=== PATIENT | male | born 1995 | race Caucasian/White ===

== ENCOUNTER 2024-08-09 16:23 | Outpatient (CLI) | payer MEDICAID, SELFPAY ==
--- NOTE | ~2024-08-09 | XR_ITS ---
EXAMINATION: XR lumbar spine 2-3V DATE: 08/09/2024 16:51 INDICATION: Low back pain TECHNIQUE: Anteroposterior and lateral views of the lumbar spine, and cone-down lateral view of the l umbosacral junction were obtained. COMPARISON: None. FINDINGS: Alignment is normal. Vertebral body and disc heights are normal. No significant lumbar facet or sacra l iliac osteoarthritis. Soft tissues are unremarkable with normal bilateral psoas shadows. IMPRESSION: 1. Negative lumbar spine radiographs. Reviewed, dictated and finalized at location B. [employer]
[2024-08-09 17:15] LABS: Hemoglobin 13.6 g/dL (14.0-18.0); Mean Corpuscular HGB Conc 33.2 g/dl (32-36); Mean Corpuscular Hemoglobin 33.1 pg (26-34); Mean Corpuscular Volume 99.8 fl (80-100); Mean Platelet Volume 10.8 fl (7.4-10.4); Platelet Count Result 178 k/mm3 (150-375); Red Blood Count 4.11 M/mm3 (4.6-6.20)
[2024-08-09 17:33] LABS: Alanine Aminotransferase 13 U/L (6-50); Albumin Level 4.8 g/dL (3.5-5.1); Alkaline Phosphatase 55 U/L (38-126); Anion Gap 4 mmol/L (4-12); Aspartate Amino Transferase 20 U/L (17-59); Bilirubin,Total 0.6 mg/dL (0.2-1.3); Blood Urea Nitrogen 12 mg/dL (9-20); Calcium 9.7 mg/dL (8.4-10.2); Carbon Dioxide 27 mmol/L (22-30); Chloride 111 mmol/L (98-107); Estimated Glomerular Filt Rate > 60; Glucose 85 mg/dL (65-110); Potassium 4.1 mmol/L (3.4-5.0); Sodium 142 mmol/L (137-145)
[2024-08-09 17:40] LABS: Iron 102 ug/dL (49-181)
[2024-08-09 17:50] LABS: Percent Iron Saturation 34 % (20-50); TOTAL IRON BINDING CAPACITY 298 ug/dL (265-497)
[2024-08-09 17:53] LABS: Hemoglobin A1C 5.1 % (<5.7)
[2024-08-09 17:59] LABS: Free T4 Free Thyroxine 1.17 ng/dL (0.78-2.19)
[2024-08-09 20:04] LABS: Lithium 0.5 mmol/L (0.6-1.2)
== END 2024-08-09 16:24 | disposition home or self-care (01) ==
LOC: ANHIMG 16:39
PROVIDERS: PCP Family Medicine
DX: R42 Dizziness and giddiness (principal); M54.50 Low back pain, unspecified
CPT/HCPCS: 36415; 72100; 80053; 80178; 83036; 83540; 83550; 84439; 84443; 85027